=== PATIENT | male | born 1985 | race Two or more races ===

== ENCOUNTER 2019-06-30 18:25 | Emergency (ER) | payer OTHER ==
[~2019-06-30] VITALS: Ht 165.1 cm; Wt 84.0 kg
[2019-06-30] MEDS ORDERED: ondansetron 4mg rapidly disintigrating tab PO ONE (20:15)
[2019-06-30] MEDS ORDERED: HYDROcodone/acetaminophen 5mg/325mg tablet PO ONE (20:15)
[2019-06-30] MEDS ORDERED: CYCL-1 PO (21:04)
[2019-06-30] MEDS ORDERED: IBUP-1984 PO (21:04)
[2019-06-30 21:13] VITALS: BP 133/89
== END 2019-06-30 21:14 | disposition home or self-care (01) ==
LOC: ER 18:27
DX: M54.2 Cervicalgia (principal); M54.5 Low back pain; R51 Headache; Z90.89 Acquired absence of other organs; Z88.0 Allergy status to penicillin; Z79.899 Other long term (current) drug therapy; W11.XXXA Fall on and from ladder, initial encounter; Y93.89 Activity, other specified; Y92.89 Other specified places as the place of occurrence of the external cause; Y99.8 Other external cause status
CPT/HCPCS: 70450; 72125; 73000; 99284